=== PATIENT | female | born 1975 | race Caucasian/White ===

== ENCOUNTER → 2020-10-30 13:43 | Outpatient (BNVA) | payer OTHER, SELFPAY | PROVIDERS: Family Provider Family Medicine; PCP Family Medicine; Visit Provider Nurse Practitioner Family | DX: Z20.822 Contact with and (suspected) exposure to COVID-19 (principal); J06.9 Acute upper respiratory infection, unspecified | CPT/HCPCS: 87426 ==

== ENCOUNTER → 2022-01-06 13:09 | Outpatient (BNVA) | payer OTHER, SELFPAY | PROVIDERS: Family Provider Family Medicine; PCP Family Medicine; Visit Provider Obstetrics & Gynecology | DX: R87.612 Low grade squamous intraepithelial lesion on cytologic smear of cervix (LGSIL) (principal) | CPT/HCPCS: 81025; 88305; 88342 ==

== ENCOUNTER 2022-01-10 14:57 | Outpatient (CLI) | payer BC, SELFPAY ==
--- NOTE | 2022-01-10 15:07 | MM_ITS ---
WS: [id number] BILATERAL 3D TOMOSYNTHESIS DIGITAL SCREENING MAMMOGRAPHY WITH CAD CLINICAL INFORMATION: SCREEN HISTORY: Screening mammogram. No current complaints. COMPARISON: None. TECHNIQUE: Bilateral CC and MLO views. FINDINGS: The breasts are composed of heterogeneous fibroglandular density tissue, which can limit the detectio n of small underlying mass lesions. No suspicious mass, asymmetry, calcifications, or architectural d istortion. No evidence of malignancy. MM/[place] [id number] IMPRESSION: BI-RADS: 1-Negative FOLLOW UP: 1 Year Follow-up Recommend return to annual screening mammography.
== END 2022-01-10 14:58 | disposition home or self-care (01) ==
PROVIDERS: PCP Family Medicine; Visit Provider Family Medicine
DX: Z12.31 Encounter for screening mammogram for malignant neoplasm of breast (principal)
CPT/HCPCS: 77063; 77067

== ENCOUNTER 2022-02-26 09:53 | Day surgery (SDC) | payer OTHER, SELFPAY ==
[2022-02-21 08:50] VITALS: BMI 23.1
--- NOTE | 2022-02-21 09:10 | P.ANESASSM_ITS ---
Pre-Anesthetic Assessment Height/Weight: Height 1.68 m Weight 64.864 kg Operation Date: 02/26/22 14:00 Proposed Procedures p Cervical cone biopsy 97019 R87.613,N87.1(Not Applicable) - Lyle Decker MD Familial anesthetic complications: None Social No alcohol and No tobacco Exam alert, oriented x 3, clear to auscultation bilaterally and regular rate & rhythm Airway Dentition: full Pulmonary None reported CV/HEM None reported None reported Hepatic None reported GI None reported Metabolic None reported Musc/skel None reported Neuropsych None reported Anesthetic Plan ASA status: 1 Anesthesia: General Risk of > 500 ml blood loss (7ml/kg in children): No Medications/Allergies Home Medications Medication Instructions Recorded Confirmed Last Taken Type multivitamin 1 tab PO DAILY 01/21/22 02/21/22 02/20/22 History Allergies Allergy/AdvReac Type Severity Reaction Status Date / Time No Known Allergies Allergy Verified 02/21/22 08:47 [facility] Anesthesia Family History (Updated 01/06/22 @ 13:01 by Pia Ludwig RN) Grandmother Diabetes maternal Father Hyperlipidemia Stroke Mother Thyroid condition Denies family history of Colon cancer Ovarian cancer Clotting disorder Heart disease Breast cancer Anesthesia complication Bleeding disorder Hypertension Uterine cancer Social History Smoking and tobacco status: never smoked Female Reproductive History Date of last menstrual period: 01/27/22 Data Anesthesia Cardiac Studies: No Data to Display
[2022-02-26] VITALS (7 sets, daily range): BP systolic 102–132; BP diastolic 58–77; PULSE 60–73; RESP 14–18; TEMP 36.2–36.7; O2SAT 99–100
[2022-02-26 11:27] LABS: Add Urine Microscopic? YES; Bilirubin Urine Neg (Negative); Blood Urine 3+ (Negative); Glucose Urine UA Norm (Normal); Ketones Urine Negative (Negative); Leukocyte Esterase Urine Negative (Negative); Nitrate Urine Negative (Negative); Protein Urine Neg (Negative); Specific Gravity, Urine 1.025 (1.005-1.030); Urine Appearance Clear (CLEAR); Urine Color Amber (Yellow); Urobilinogen Urine Norm (Negative); pH Urine 5 (5-7)
[2022-02-26 11:28] LABS: Add Urine Culture? No; Bacteria Urine 1+ /hpf; RBC Urine TOO NUMEROUS TO CNT /hpf (0-2); Squamous Epithelial Cell Urine 0-4 /hpf (0-5); WBC Urine 0-4 /hpf (0-5)
[2022-02-26] MEDS: scopolamine 1.5 Patch 1 PATCH TRANSDERMA (11:28)
[2022-02-26] MEDS: sodium chloride 0.9% 1,000 ML 30 ML IV (11:28)
[2022-02-26 11:37] LABS: Basophils # 0.1 10^3/uL (0.0-0.1); Basophils % 0.9 %; Eosinophils # 0.1 10^3/uL (0.0-0.8); Eosinophils % 1.3 %; Hematocrit 38.8 % (37.0-47.0); Hemoglobin 12.6 g/dL (11.5-15.3); Lymphocytes # 1.8 10^3/uL (0.8-4.8); Mean Corpuscular HGB Conc 32.5 g/dL (30.0-36.0); Mean Corpuscular Hemoglobin 30.5 pg (28.0-34.0); Mean Corpuscular Volume 93.9 fl (81-99); Mean Platelet Volume 9.8 fL (7.4-10.4); Monocytes # 0.5 10^3/uL (0.2-0.9); Monocytes % 8.5 %; Neutrophils # 3.02 10^3/uL (1.8-7.7); Neutrophils % 55.9 %; Nucleated Red Blood Cells % 0 %; Platelet Count 218 10^3/cmm (130-400); Red Blood Count 4.13 10^6/uL (4.1-5.3); Red Cell Distribution Width 13.1 % (12.1-15.1); White Blood Count 5.4 10^3/uL (4.0-10.0)
[2022-02-26 11:55] LABS: Alanine Aminotransferase 8 U/L (0-33); Albumin Level 4.2 g/dL (3.5-5.2); Alkaline Phosphatase 64 U/L (35-105); Anion Gap 14.1 (5-19); Aspartate Amino Transferase 16 U/L (0-32); Blood Urea Nitrogen 16 mg/dL (6-20); Calcium 9.2 mg/dL (8.5-10.5); Carbon Dioxide 23 mmol/L (22-29); Chloride 105 mmol/L (98-107); Globulin 2.6 g/dL (1.3-4.6); Glomerular Filtration Rate 60.2 mL/min (90-130); Glucose 93 mg/dL (65-115); Osmolality Calculated 287 mOsm/kg (285-295); Potassium 4.1 mmol/L (3.5-5.1); Sodium 138 mmol/L (136-145); Total Bilirubin 0.5 mg/dL (0.15-1.2); Total Protein 6.8 g/dL (6.6-8.7)
--- NOTE | 2022-02-26 12:04 | W.PM.OPSUD ---
Surgery/Procedure H&P Update DATE OF PROCEDURE: February 26, 2022 DATE H&P PERFORMED: 02/21/22 H&P UPDATE INFORMATION: I have reviewed H&P completed within last 30 days, I have examined patient prior to procedure and No changes to prior documentation PREOP DIAGNOSIS: JULIETH-2 PLANNED PROCEDURE: Operation Date: 02/26/22 11:30 Proposed Procedures p Cervical cone biopsy 85211 R87.613,N87.1(Not Applicable) - Lyle Decker MD
[2022-02-26 12:28] LABS: OR HCG Qualitative Urine Negative (Negative)
--- NOTE | 2022-02-26 13:45 | P.ANESUD_ITS ---
Pre-Anesthetic Update Pre-Anesthetic Assessment: Date of Surgery/Procedure: 02/26/22 Preop Debbie gnosis: JULIETH-2 Proposed Procedure: Operation Date: 02/26/22 11:30 Proposed Procedures p Cervical cone biopsy 05702 R87.613,N87.1(Not Applicable) - Lyle Decker MD Any changes to Pre-Anesthetic Assessment?: No Last Intake: Intake Last Liquid Date 02/25/22 Last Liquid Time 23:59 Last Solid Date 02/25/22 Last Solid Time 20:30 Labs Last 48hrs: Short CBC 02/26/22 Range/Units 11:20 WBC 5.4 (4.0-10.0) 10^3/ uL Hgb 12.6 (11.5-15.3) g/dL Hct 38.8 (37.0-47.0) % MCV 93.9 (81-99) fl Plt Count 218 (130-400) 10^3/c mm Neut % (Auto) 55.9 % Neut # (Auto) 3.02 (1.8-7.7) 10^3/u L BMP 02/26/22 11:20 Sodium 138 Potassium 4.1 Chloride 105 Carbon Dioxide 23 BUN 16 Creatinine 1.0 H Glucose 93 Calcium 9.2 Liver Function 02/26/22 Range/Units 11:20 Total Bilirubin 0.5 (0.15-1.2) mg/dL AST 16 (0-32) U/L ALT 8 (0-33) U/L Alkaline Phosphata se 64 (35-105) U/L Albumin 4.2 (3.5-5.2) g/dL Urine 02/26/22 Range/Units 11:05 Urine Color Chelly (Yellow) Urine Appearance Clear (CLEAR) Urine pH 5 (5-7) Ur Specific Gravit y 1.025 (1.005-1.030) Urine Protein Neg (Negative) Urine Glucose (UA) Norm (Normal) Urine Ketones Negative (Negative) Urine Nitrate Negative (Negative) Urine Bilirubin Neg (Negative) Ur Leukocyte Janeth ase Negative (Negative) Urine RBC Too numerous to c nt H (0-2) /hpf Urine WBC 0-4 H (0-5) /hpf Blood Bank 02/26/22 11:20 Blood Type A Positive Rho(D) Type Positive Antibody Screen Negative Vitals: Temperature 97.6 F 02/26/22 11:11 Temperature Source Temporal Artery S can 02/26/22 11:11 Pulse Rate 70 02/26/22 11:11 Pulse Rhythm 02/26/22 11:11 Pulse Strength 3+ Normal 02/26/22 11:11 Respiratory Rate 18 02/26/22 11:11 Blood Pressure 126/77 02/26/22 11:11 Blood Pressure Sofía n 93 02/26/22 11:11 Pulse Oximetry 100 02/26/22 11:11 Oxygen Delivery Me thod 02/26/22 11:11 Exam: Pre-Anes Outpt Exam: alert, oriented x 3, clear to auscultation bilaterally and regular rate & rhythm Cardiac Studies: No Data to Display
[2022-02-26] MEDS: ceFAZolin 2,000 MG in sodium chloride 0.9% (plus) 50 ML 100 MG IV (13:47)
--- NOTE | 2022-02-26 14:42 | PM.OP ---
Operative Report Date of procedure: February 26, 2022 Pre-op diagnosis: Preop Diagnosis JULIETH-2 Post-op diagnosis: Same as above Procedure done: Cervical cone biopsy via Vega cone biopsy excision Specimens removed/disposition: Cervical cone biopsy Surgeon: Lyle Decker MD Estimated blood loss (mL): 5 IV fluids (mL): 700 Procedure: After informed consent, the patient was taken to the operating room where general anesthesia was administered without difficulty. After administration of general anesthesia, the patient was placed in the dorsal lithotomy position, and prepped and draped in the usual sterile fashion. A time-out procedure was performed. The patient was examined under anesthesia and found to have a normal uterus with normal adnexa. A weighted speculum was then placed in the patient's vagina and the anterior lip of the cervix grasped with the singed toothed tenaculum A uterine sound was then advanced into the cervix to determine its direction and length. The decending cervical branchs of the uterine arteries were ligated with 2-0 Vicryl bilaterally at the level of the internal os. Attention was then turned to the cervix where it was stain with Lugol?s solution to hightlight the lesion. The paracervical area was then circumferentially infiltrated using Lidocaine 1% with epinephrine. A Crump Cone Biopsy Excisor was used to cut the cone biopsy in circular fashion and following removal of the specimen a suture was placed at the 12 o?clock location and fixed in formalin. Bleeding was minimal. The patient tolerated the procedure well, sponge, lap and needle counts were correct times two She was taken to the recovery room in good condition.
[2022-02-26] MEDS: ibuprofen 800 mg tablet PO (15:30)
--- NOTE | 2022-02-26 15:30 | ANE.PACU2 ---
Inpatient post-anesthesia follow up: Airway intact: Yes Vital signs: Temperature 97.2 F Pulse Rate 67 Respiratory Rate 18 Blood Pressure 130/61 Pulse Oximetry 100 Oxygen Delivery Me thod Room Air Oxygen Flow Rate 6 Fraction of Inspir ed Oxygen Hydration adequate: Yes Nausea and vomiting: No Pain level: 2 Mental status: Baseline Additional Comments: Headache (preop c/o)
[2022-02-26] MEDS: ondansetron 2 mg/ML SDV 2 mL 4 MG IVP (15:37)
== END 2022-02-26 16:03 | disposition home or self-care (01) ==
PROVIDERS: Anesthesiology; PCP Family Medicine; Visit Provider Obstetrics & Gynecology
PROC: 0UB97ZZ Excision of Uterus, Via Natural or Artificial Opening (ICD-10-PCS; CPT 57520; principal; 2022-02-26 11:20)
DX: N87.1 Moderate cervical dysplasia (principal)
CPT/HCPCS: 57522; 36415; 80053; 81001; 81025; 84703; 85025; 86850; 86900; 88307; J0690; J1100; J1885; J2250; J2405; J2704; J3010; J7030

== ENCOUNTER → 2023-05-21 15:38 | Outpatient (BNVA) | payer OTHER, SELFPAY | PROVIDERS: PCP Family Medicine; Visit Provider Obstetrics & Gynecology | DX: Z12.4 Encounter for screening for malignant neoplasm of cervix (principal) | CPT/HCPCS: 87624 ==

== ENCOUNTER 2023-05-27 08:45 | Outpatient (CLI) | payer OTHER, SELFPAY ==
--- NOTE | 2023-05-27 09:00 | MM_ITS ---
WS: [id number] Bilateral screening 3D tomosynthesis digital mammogram, 05/27/2023 Clinical Data: Z12.31 - Encounter for screening mammogram for malignant ... Comparison: 01/10/2022 Findings: The breast parenchymal pattern shows heterogeneous density. No spiculated masses or clustered calcifi cations are seen. There are no secondary signs of carcinoma. Impression: 1. Negative bilateral mammogram unchanged. 2. Recommend annual screening mammograms. MM/[place] [id number] BIRADS: 1-Negative FOLLOW UP: 1 Year Follow-up The CAD freight checker was used.
== END 2023-05-27 08:46 | disposition home or self-care (01) ==
LOC: RAD 08:45
PROVIDERS: PCP Family Medicine; Visit Provider Obstetrics & Gynecology
DX: Z12.31 Encounter for screening mammogram for malignant neoplasm of breast (principal)
CPT/HCPCS: 77063; 77067

== ENCOUNTER → 2023-06-22 07:58 | Outpatient (BNVA) | payer OTHER, SELFPAY | PROVIDERS: PCP Family Medicine; Visit Provider Obstetrics & Gynecology | DX: R87.612 Low grade squamous intraepithelial lesion on cytologic smear of cervix (LGSIL) (principal) | CPT/HCPCS: 81025; 88305 ==

== ENCOUNTER 2024-07-01 09:18 | Outpatient (CLI) | payer OTHER, SELFPAY ==
--- NOTE | 2024-07-01 09:20 | MM_ITS ---
WS: [id number] BILATERAL SCREENING DIGITAL TOMOSYNTHESIS MAMMOGRAM WITH CAD HISTORY: SCREENING COMPARISON: 05/27/2023, 01/10/2022 Bilateral CC and MLO views with tomosynthesis and synthetic mammography submitted. Computer aided detection analyzed. Breast composition: The breasts are heterogeneously dense, which may obscure small masses. No suspicious masses, microcalcifications or architectural distortion. MM/MM scr tomosynthesis [id number] IMPRESSION: BI-RADS: 1 - Negative FOLLOW UP: 1 Year Follow-up
== END 2024-07-01 09:19 | disposition home or self-care (01) ==
PROVIDERS: PCP Family Medicine; Visit Provider Family Medicine
DX: Z12.31 Encounter for screening mammogram for malignant neoplasm of breast (principal); R92.333 Mammographic heterogeneous density, bilateral breasts
CPT/HCPCS: 77063; 77067

== ENCOUNTER → 2024-09-29 14:00 | Outpatient (BNVA) | payer OTHER, SELFPAY | PROVIDERS: PCP Family Medicine; Visit Provider Nurse Practitioner Women's Health | DX: R87.612 Low grade squamous intraepithelial lesion on cytologic smear of cervix (LGSIL) (principal) | CPT/HCPCS: 87624 ==

== ENCOUNTER 2024-11-30 16:13 | Outpatient (CLI) | payer OTHER, SELFPAY ==
--- NOTE | 2024-11-30 16:30 | USR_ITS ---
PROCEDURE INFORMATION: Exam: US Pelvis, Transvaginal, Non-Obstetric Exam date and time: 11/30/2024 4:28 PM Age: 49 years old Clinical indication: Abnormal findings; Abnormal imaging test; Adnormal pap; Additional info: R87.612 - low grade squamous intraepithelial lesion on cy. . . TECHNIQUE: Imaging protocol: Real-time transvaginal pelvic (non-obstetric) ultrasound with image documentation. Transvaginal imaging was used for better evaluation of the endometrium, adnexa, and/or cervix. COMPARISON: US renal BI* [id number] 07/13/2024 2:55 PM FINDINGS: Uterus: Uterus is normal. Cervix has an unremarkable sonographic appearance. Endometrial stripe measures 0.8 cm. Right ovary/adnexa: Obscured by lack of acoustic window. Left ovary/adnexa: Normal ovarian blood flow on color Doppler. Cystic structure measuring 3.3 x 3.4 x 3.1 cm in the left adnexa. Urinary bladder: Urinary bladder is limited. Intraperitoneal space: No free fluid. US/US transvaginal [id number] IMPRESSION: 1. Left adnexal cystic structure likely represents a dominant follicle. Follow-up could be considered in 3-6 months to document stability. 2. Right ovary not visualized.
== END 2024-11-30 16:14 | disposition home or self-care (01) ==
LOC: RAD 16:16
PROVIDERS: PCP Family Medicine; Visit Provider Obstetrics & Gynecology
DX: R87.612 Low grade squamous intraepithelial lesion on cytologic smear of cervix (LGSIL) (principal); R87.619 Unspecified abnormal cytological findings in specimens from cervix uteri; N83.202 Unspecified ovarian cyst, left side
CPT/HCPCS: 76830

== ENCOUNTER 2025-03-07 11:39 | Day surgery (SDC) | payer OTHER, SELFPAY ==
--- NOTE | 2025-03-06 22:56 | W.PM.OPSFHP ---
Same Day Surgery H&P Indication for Procedure/HPI DATE OF PROCEDURE: March 06, 2025 CHIEF COMPLAINT/INDICATIONFOR SURGICAL PROCEDURE: abnormal uterine bleeding; abnormal pap PREOP DIAGNOSIS: abnormal uterine bleeding; abnormal pap PLANNED PROCEDURE: Operation Date: 03/07/25 13:20 Proposed Procedures p Loop Electrosurgical Excision Procedure (LEEP) 65336 56574 82142 R87.619 R87.612(Not Applicable) - Manuel Ford MD s Hysteroscopy w/ Endometrial Sampling(Not Applicable) - Manuel Ford MD s POSSIBLE Endometrial Poylpectomy(Not Applicable) - Manuel Ford MD Medications/Allergies* Home Medications ?Medication ?Instructions ?Recorded ?Confirmed ?Type multivitamin 1 tab PO DAILY 01/21/22 03/06/25 History Allergies/Adverse Reactions Allergy/AdvReac Type Severity Reaction Status Date / Time sulfamethoxazole (From AdvReac ADR-Vomitin Verified 12/26/24 15:39 Bactrim) g trimethoprim (From Bactrim) AdvReac ADR-Vomitin Verified 12/26/24 15:39 g Pertinent History/Comorbid Conditions* Family History (Updated 01/06/22 @ 13:01 by Pia Ludwig RN) Diabetes Grandmother maternal Hyperlipidemia Father Thyroid disease Mother Stroke Father Denies family history of Colon cancer Ovarian cancer Clotting disorder Heart disease Breast cancer Anesthesia complication Bleeding disorder Hypertension Uterine cancer Social History Smoking and tobacco/nicotine status: never used tobacco/nicotine Pertinent Exam Findings alert, oriented x 3, clear to auscultation bilaterally and regular rate & rhythm Recommendations Surgery/Procedure today Coding Level of Care Code Acute Code for Chg Fwd
[2025-03-07] VITALS (9 sets, daily range): BP systolic 96–129; BP diastolic 58–80; PULSE 56–74; RESP 12–16; TEMP 36.6–36.8; O2SAT 97–100; BMI 24.7
--- NOTE | 2025-03-07 12:41 | W.PM.OPSUD ---
Surgery/Procedure H&P Update DATE OF PROCEDURE: March 07, 2025 DATE H&P PERFORMED: 03/06/25 H&P UPDATE INFORMATION: I have reviewed H&P completed within last 30 days, I have examined patient prior to procedure and No changes to prior documentation PREOP DIAGNOSIS: abnormal uterine bleeding; abnormal pap PLANNED PROCEDURE: Operation Date: 03/07/25 13:20 Proposed Procedures p Loop Electrosurgical Excision Procedure (LEEP) 41279 55336 94149 R87.619 R87.612(Not Applicable) - Manuel Ford MD s Hysteroscopy w/ Endometrial Sampling(Not Applicable) - Manuel Ford MD s POSSIBLE Endometrial Poylpectomy(Not Applicable) - Manuel Ford MD
[2025-03-07 12:50] LABS: OR HCG Qualitative Urine Negative (Negative)
--- NOTE | 2025-03-07 12:50 | ANES.PREANE2 ---
Pre-Anesthetic Assessment Height/Weight: Height 1.68 m Weight 69.4 kg Temp Pulse Resp BP Pulse Ox O2 Del Method 98.2 F 71 16 120/80 100 Room Air 03/07/25 12:00 03/07/25 12:00 03/07/25 12:00 03/07/25 12:00 03/07/25 12:00 03/07/25 12:00 Preop Diagnosis: abnormal uterine bleeding; abnormal pap Operation Date: 03/07/25 13:20 Proposed Procedures p Loop Electrosurgical Excision Procedure (LEEP) 91033 20440 63093 R87.619 R87.612(Not Applicable) - Manuel Ford MD s Hysteroscopy w/ Endometrial Sampling(Not Applicable) - Manuel Ford MD s POSSIBLE Endometrial Poylpectomy(Not Applicable) - Manuel Ford MD Familial anesthetic complications: PONV Was Beta Jacky taken within 24 hours: N/A Was Clonidine taken within 24 hours: N/A Last intake: Intake Last Liquid Date 03/06/25 Last Liquid Time 21:00 Last Solid Date 03/06/25 Last Solid Time 21:00 Social No alcohol and No tobacco Exam alert, oriented x 3, clear to auscultation bilaterally and regular rate & rhythm Airway Mallampati: Class II Dentition: full Anesthetic Plan ASA status: 1 Anesthesia: General Risk of > 500 ml blood loss (7ml/kg in children): No Medications/Allergies Home Medications ?Medication ?Instructions ?Recorded ?Confirmed ?Last Taken ?Type multivitamin 1 tab PO DAILY 01/21/22 03/07/25 02/25/22 History acetaminophen 325 mg capsule 325 mg PO Q4H PRN fever or pain 02/26/22 03/07/25 03/05/25 Rx #60 caps Allergies Allergy/AdvReac Type Severity Reaction Status Date / Time sulfamethoxazole (From AdvReac ADR-Vomitin Verified 12/26/24 15:39 Bactrim) g trimethoprim (From Bactrim) AdvReac ADR-Vomitin Verified 12/26/24 15:39 g Current Medications Generic Name Dose Route Start Last Admin Trade Name Freq PRN Reason Stop Dose Admin Sodium Chloride 1,000 mls @ 30 mls/hr 03/07/25 11:45 03/07/25 12:06 Sodium Chloride 0.9% IV 03/08/25 11:44 30 mls/hr .Q24H DEMETRI Administration PFSH Anesthesia Family History Grandmother Diabetes maternal Father Hyperlipidemia Stroke Mother Thyroid disease Denies family history of Colon cancer Ovarian cancer Clotting disorder Heart disease Breast cancer Anesthesia complication Bleeding disorder Hypertension Uterine cancer Social History Smoking and tobacco/nicotine status: never used tobacco/nicotine
--- NOTE | 2025-03-07 14:32 | PM.OP ---
Operative Report Date of procedure: March 07, 2025 Pre-op diagnosis: abnormal uterine bleeding abnormal Pap Post-op diagnosis: same Post-op findings: uterus sounded to 8 cm Endometrial cavity normal Minimal endometrial tissue No polyps or fibroids Normal cervix and vagina Procedure done: hysteroscopy Curettage of uterus Electrosurgical loop excision of the cervix Implants: none Specimens removed/disposition: endometrial curettings cervical tissue Surgeon: Manuel Ford MD Anesthesia: MAC Estimated blood loss (mL): 5 Complications: none Findings: see above Condition: stable Disposition: PACU Brief History: 49 y.o. with abnormal uterine bleeding and abnormal pap Procedure: Patient was taken to the operating room. Anesthesia was induced. Patient was placed in dorsolithotomy position, prepped and draped for hysteroscopy. A bivalve speculum was placed in the vagina. The anterior lip of the cervix was grasped with a sharp-toothed tenaculum. The cervix was serially dilated with Hegar dilators. A hysteroscope was placed into the endometrial cavity. The endometrial cavity was seen to be normal. There were no polyps or fibroids. There was a small amount of endometrial tissue. The hysteroscope was then removed. Endometrial curettage was done with a sharp curette. Endometrial tissue was sent to pathology. The cervix was then infiltrated at the cervicovaginal junction with 20 U of vasopressin to decrease bleeding. Electrosurgical loop excision of the cervix was done to a depth of approximately 5 mm. No bleeding was seen. Excellent hemostasis was noted. All instruments were then removed. The patient was placed supine, awakened, and taken to the recovery room. Postoperative condition: stable EBL: 5 cc Complications: none Sponge and instrument counts were correct x two
--- NOTE | 2025-03-07 15:20 | ANE.PACU2 ---
Inpatient post-anesthesia follow up: Airway intact: Yes Vital signs: Temperature 97.9 F Pulse Rate 58 Respiratory Rate 12 Blood Pressure 126/74 Pulse Oximetry 100 Oxygen Delivery Me thod Room Air Oxygen Flow Rate 8 Fraction of Inspir ed Oxygen Hydration adequate: Yes Nausea and vomiting: No Pain level: 1 Mental status: Baseline
== END 2025-03-07 15:20 | disposition home or self-care (01) ==
PROVIDERS: Anesthesiology; PCP Family Medicine; Visit Provider Obstetrics & Gynecology
PROC: (CPT 58558; principal; 2025-03-07 13:10)
PROC: 0UJD8ZZ Inspection of Uterus and Cervix, Via Natural or Artificial Opening Endoscopic (ICD-10-PCS; CPT 58555; 2025-03-07 13:10)
DX: N93.9 Abnormal uterine and vaginal bleeding, unspecified (principal); R89.6 Abnormal cytological findings in specimens from other organs, systems and tissues; N72 Inflammatory disease of cervix uteri
CPT/HCPCS: 58558; 57522; 81025; 88305; 88307; A4216; J1100; J1885; J2250; J2405; J2704; J3010; J3490; J7030; J9999